=== PATIENT | male | born 1990 | race African-American/Black ===

== ENCOUNTER 2018-05-30 18:27 | Emergency (ER) | payer OTHER ==
[~2018-05-30] VITALS: Ht 167.6 cm; Wt 95.5 kg
[2018-05-30 18:28] VITALS: BP 149/74
[2018-05-30] MEDS ORDERED: GERD MED (18:34)
[2018-05-30] MEDS ORDERED: TRAZ-160 PO (18:35)
[2018-05-30] MEDS ORDERED: ZOLO100T PO (18:35)
[2018-05-30] MEDS ORDERED: VITAMIN D (18:35)
[2018-05-30] MEDS ORDERED: SINGULAIR (18:36)
[2018-05-30] MEDS ORDERED: ALBUTEROL INHALER (18:36)
[2018-05-30] MEDS ORDERED: FLUT44IN INH (18:36)
[2018-05-30] MEDS ORDERED: ACET30TAB PO (19:55)
[2018-05-30] MEDS ORDERED: KETO10TAB PO (19:55)
[2018-05-30] MEDS ORDERED: KETOROLAC TROMETHAMINE 10 MG TAB PO ONE (20:00)
== END 2018-05-30 20:04 | disposition home or self-care (01) ==
LOC: M ED 18:27
DX: M25.571 Pain in right ankle and joints of right foot (principal); T80.89XA Other complications following infusion, transfusion and therapeutic injection, initial encounter; Z88.8 Allergy status to other drugs, medicaments and biological substances; Z91.013 Allergy to seafood; Z79.899 Other long term (current) drug therapy

== ENCOUNTER 2018-06-05 10:02 | Emergency (ER) | payer OTHER ==
[~2018-06-05] VITALS: Ht 167.6 cm; Wt 90.9 kg
[~2018-06-05 10:02] MED LIST: ACET30TAB PO; ALBUTEROL INHALER; FLUT44IN INH; GERD MED; KETO10TAB PO; SINGULAIR; TRAZ-160 PO; VITAMIN D; ZOLO100T PO
[2018-06-05] MEDS ORDERED: RIZA10TA4 (10:13)
[2018-06-05] MEDS ORDERED: TRAZ10TA PO (10:13)
[2018-06-05] MEDS ORDERED: METH1TAB40 (10:13)
[2018-06-05] MEDS ORDERED: DOCU100C16 (10:13)
[2018-06-05] MEDS ORDERED: PANT40TA3 (10:13)
[2018-06-05] MEDS ORDERED: SILD25TA (10:13)
[2018-06-05] MEDS ORDERED: MONT10TA2 (10:13)
[2018-06-05] MEDS ORDERED: OLAN15TA (10:13)
[2018-06-05 10:48] VITALS: BP 148/92
== END 2018-06-05 10:56 | disposition home or self-care (01) ==
LOC: M ED 10:02
DX: G47.00 Insomnia, unspecified (principal); T78.40XA Allergy, unspecified, initial encounter; X58.XXXA Exposure to other specified factors, initial encounter; Y92.89 Other specified places as the place of occurrence of the external cause; F43.10 Post-traumatic stress disorder, unspecified; F33.9 Major depressive disorder, recurrent, unspecified; Z79.899 Other long term (current) drug therapy; Z88.8 Allergy status to other drugs, medicaments and biological substances; Z91.013 Allergy to seafood

== ENCOUNTER → 2018-08-08 | Outpatient (CLI) | payer OTHER ==
[~2018-08-08] MED LIST changes: +ACET-716 PO; -ACET30TAB PO; +DOCU100C16; +METH1TAB40; +MONT10TA2; +OLAN15TA; +PANT40TA3; +RIZA10TA4; +SILD25TA; +TRAZ10TA PO
--- NOTE | 2018-08-08 11:20 | REP ---
Chest x-ray: Two views. History: Asthma . Comparison study: May 28, 2018 . Findings: The lungs are well inflated and free of infiltrate. The pleural angles are sharp. The heart size is normal. Pulmonary vasculature is not increased. No significant bony abnormality is seen. Impression: Negative chest x-ray. Electronically Signed by Aray Burnett MD 08/08/2018 11:11 A
== END ==
LOC: M SMT 11:00
PROVIDERS: ATTEND Nurse Practitioner Adult Health
DX: J45.50 Severe persistent asthma, uncomplicated (principal)

== ENCOUNTER → 2019-07-02 | Outpatient (REF) | payer OTHER ==
[~2019-07-02] MED LIST changes: -MONT10TA2; +MONT10TA4; -RIZA10TA4; +RIZA10TA58; -TRAZ-160 PO; +TRAZ-252 PO; -TRAZ10TA PO; +TRAZ1TAB12 PO
== END ==
LOC: M LAB REF 13:48
PROVIDERS: ATTEND Physician Assistant
DX: R05 Cough (principal)

== ENCOUNTER → 2019-08-19 | Outpatient (CLI) | payer OTHER | LOC: M LABSMTC 13:07 | PROVIDERS: ATTEND Family Medicine | DX: Z11.59 Encounter for screening for other viral diseases (principal); Z20.828 Contact with and (suspected) exposure to other viral communicable diseases ==

== ENCOUNTER 2019-08-28 16:00 | Emergency (ER) | payer OTHER ==
[2019-08-28 16:50] LABS: BASO % 0.3 % (0.0-1.0); EOS # 0.2 10^3/uL (0.0-0.5); EOS % 2.5 % (0.0-3.0); HEMATOCRIT 49.2 % (42.0-52.0); HEMOGLOBIN 15.4 g/dl (13.5-17.5); LYMPH # 2.2 10^3/uL (1.5-5.0); LYMPH % 25.1 % (24.0-44.0); MEAN CORPUSCULAR HEMOGLOBIN 26.5 pg (27.0-33.0); MEAN CORPUSCULAR HGB CONC 31.3 g/dl (32.0-36.5); MEAN CORPUSCULAR VOLUME 84.5 fl (80.0-96.0); MONO # 0.8 10^3/uL (0.0-0.8); MONO % 8.6 % (0.0-5.0); NEUTROPHILS # 5.5 10^3/uL (1.5-8.5); NEUTROPHILS % 62.9 % (36.0-66.0); PLATELET COUNT, AUTOMATED 262 10^3/uL (150-450); RED BLOOD COUNT 5.82 10^6/uL (4.30-6.10); WHITE BLOOD COUNT 8.8 10^3/uL (4.0-10.0)
[2019-08-28 17:17] LABS: ACETAMINOPHEN LEVEL < 2.0 UG/ML (10.0-30.0); ALBUMIN 3.8 GM/DL (3.2-5.2); ALT/SGPT 74 U/L (12-78); BILIRUBIN,DIRECT 0.1 MG/DL (0.0-0.2); BILIRUBIN,TOTAL 0.6 MG/DL (0.2-1.0); BLOOD UREA NITROGEN 16 MG/DL (7-18); CALCIUM LEVEL 8.9 MG/DL (8.5-10.1); CARBON DIOXIDE LEVEL 30 MEQ/L (21-32); CHLORIDE LEVEL 103 MEQ/L (98-107); CPK CREATINE PHOSPHOKINASE 155 U/L (39-308); CREATININE FOR GFR 1.47 MG/DL (0.70-1.30); ETHYL ALCOHOL (ETHANOL) < 0.003 % (0.000-0.010); GLOMERULAR FILTRATION RATE > 60.0 (>60); GLUCOSE, FASTING 98 MG/DL (70-100); POTASSIUM SERUM 3.8 MEQ/L (3.5-5.1); SALICYLATE LEVEL < 1.7 MG/DL (5.0-30.0); SODIUM LEVEL 138 MEQ/L (136-145); THYROID STIMULATING HORMONE 0.682 uIU/ML (0.358-3.740); TOTAL PROTEIN 7.7 GM/DL (6.4-8.2)
[2019-08-28] MEDS ORDERED: NS 1,000 ML IV ONE (18:00)
[2019-08-28 19:53] LABS: AMPHETAMINES LEVEL URINE NEGATIVE (NEGATIVE); BARBITURATES URINE NEGATIVE (NEGATIVE); BENZODIAZEPINES URINE NEGATIVE (NEGATIVE); CANNABINOIDS URINE POSITIVE (NEGATIVE); COCAINE METABOLITE URINE NEGATIVE (NEGATIVE); METHADONE URINE NEGATIVE (NEGATIVE); OPIATES URINE NEGATIVE (NEGATIVE); PHENCYCLIDINE URINE NEGATIVE (NEGATIVE)
[2019-08-28 20:30] VITALS: BP 157/76
--- NOTE | 2019-08-29 06:47 | ECGEPIP ---
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
== END 2019-08-28 20:53 | disposition home or self-care (01) ==
LOC: M ED 16:00 → EDBD 16:00 → M ED 20:53
DX: F33.9 Major depressive disorder, recurrent, unspecified (principal); F43.10 Post-traumatic stress disorder, unspecified; Z79.899 Other long term (current) drug therapy; Z88.8 Allergy status to other drugs, medicaments and biological substances; Z91.018 Allergy to other foods
CPT/HCPCS: 80048; 80076; 80307; 82550; 84443; 85025; 93005; 93041; 94760; 96360; 96361; 99285; G0480

== ENCOUNTER 2020-01-12 12:03 | Emergency (ER) | payer OTHER ==
[~2020-01-12] VITALS: Ht 167.6 cm; Wt 100.4 kg
[~2020-01-12 12:03] MED LIST changes: +PANT40TA29; -PANT40TA3
[2020-01-12] MEDS ORDERED: LORazepam 0.5 MG TAB PO STA (14:33)
[2020-01-12 15:03] LABS: BASO % 0.7 % (0.0-1.0); EOS # 0.1 10^3/uL (0.0-0.5); HEMATOCRIT 46.7 % (42.0-52.0); HEMOGLOBIN 14.7 g/dl (13.5-17.5); LYMPH # 1.2 10^3/uL (1.5-5.0); LYMPH % 20.5 % (24.0-44.0); MEAN CORPUSCULAR HEMOGLOBIN 26.2 pg (27.0-33.0); MEAN CORPUSCULAR HGB CONC 31.5 g/dl (32.0-36.5); MEAN CORPUSCULAR VOLUME 83.2 fl (80.0-96.0); MONO # 0.4 10^3/uL (0.0-0.8); MONO % 7.2 % (0.0-5.0); NEUTROPHILS # 4.2 10^3/uL (1.5-8.5); NEUTROPHILS % 69.3 % (36.0-66.0); PLATELET COUNT, AUTOMATED 271 10^3/uL (150-450); RED BLOOD COUNT 5.61 10^6/uL (4.30-6.10)
--- NOTE | 2020-01-12 15:08 | REPVR ---
PROCEDURE INFORMATION: Exam: XR Chest, 2 Views Exam date and time: 01/12/2020 2:50 PM Age: 29 years old Clinical indication: Chest pain; Type not specified; Additional info: Chest discomfort TECHNIQUE: Imaging protocol: XR of the chest Views: 2 views. COMPARISON: VT CHEST 2 VIEWS 08/08/2018 11:08 AM FINDINGS: Lungs: Unremarkable. No consolidation. Pleural space: Unremarkable. No pleural effusion. No pneumothorax. Heart/Mediastinum: Unremarkable. No cardiomegaly. Bones/joints: Unremarkable. IMPRESSION: No acute findings. Electronically signed by: Calvin Fleming On 01/12/2020 15:08:30 PM
[2020-01-12 15:38] LABS: ALT/SGPT 53 U/L (12-78); BILIRUBIN,DIRECT 0.1 MG/DL (0.0-0.2); BILIRUBIN,TOTAL 0.6 MG/DL (0.2-1.0); BLOOD UREA NITROGEN 8 MG/DL (7-18); CALCIUM LEVEL 9.6 MG/DL (8.5-10.1); CARBON DIOXIDE LEVEL 28 MEQ/L (21-32); CHLORIDE LEVEL 106 MEQ/L (98-107); CK-MB VALUE MASS < 1.0 NG/ML (<3.6); CPK CREATINE PHOSPHOKINASE 236 U/L (39-308); CREATININE FOR GFR 1.41 MG/DL (0.70-1.30); GLOMERULAR FILTRATION RATE > 60.0 (>60); GLUCOSE, FASTING 96 MG/DL (70-100); MB/CK RELATIVE INDEX 0.42 (< OR =4); SODIUM LEVEL 140 MEQ/L (136-145); TOTAL PROTEIN 7.9 GM/DL (6.4-8.2); TROPONIN I < 0.02 NG/ML (< 0.10)
[2020-01-12 16:27] VITALS: BP 147/79
--- NOTE | 2020-01-13 09:27 | ECGEPIP ---
[facility] - ED Test Date: 2020-01-12 Pat Name: LOU MATTA Department: Room: - Gender: Male [employer]: : 1990 Requested By: MAI Allen PA-C Order Number: [id number] Reading MD: Nael Dennis Measurements Intervals [place] Rate: 77 P: 60 TX: 168 QRS: 66 QRSD: 88 T: -4 QT: 359 QTc: 407 Interpretive Statements SINUS RHYTHM WITH SINUS ARRHYTHMIA NSTTW ABNORMALITY(S) RATE CHANGE COMPARED TO 08/28/19 Electronically Signed on 01-13-2020 9:27:20 EDT by Nael Dennis
== END 2020-01-12 16:28 | disposition home or self-care (01) ==
LOC: M ED 12:03
DX: F41.9 Anxiety disorder, unspecified (principal); K21.9 Gastro-esophageal reflux disease without esophagitis; K27.9 Peptic ulcer, site unspecified, unspecified as acute or chronic, without hemorrhage or perforation; F43.10 Post-traumatic stress disorder, unspecified; J45.909 Unspecified asthma, uncomplicated; G43.909 Migraine, unspecified, not intractable, without status migrainosus; Z79.51 Long term (current) use of inhaled steroids; Z79.899 Other long term (current) drug therapy; Z88.8 Allergy status to other drugs, medicaments and biological substances